=== PATIENT | female | born 1990 | race American Indian/Alaskan Native ===

== ENCOUNTER 2017-04-29 15:20 | Emergency (ER) | payer SELFPAY ==
[2017-04-29 17:48] VITALS: BP 141/85
[2017-04-29 18:21] LABS: Basophils % (Auto) 0.7 % (0.0-1.8); Eosinophils % (Auto) 1.7 % (0.0-4.3); Hematocrit 42.9 % (30.3-42.9); Mean Corpuscular HGB Conc 33 % (30-34); Mean Corpuscular Hemoglobin 30 pg (28-32); Mean Corpuscular Volume 93 fl (79-97); Platelet Count 150 K/mm3 (140-440); Red Blood Count 4.61 M/mm3 (3.65-5.03); Red Cell Distribution Width 12.8 % (13.2-15.2); White Blood Count 5.8 K/mm3 (4.5-11.0)
[2017-04-29 18:29] LABS: Alanine Aminotransferase 16 units/L (7-56); Albumin 4.4 g/dL (3.9-5); Albumin/Globulin Ratio 1.8 %; Alkaline Phosphatase 45 units/L (35-129); Anion Gap 16 mmol/L; Blood Urea Nitrogen 14 mg/dL (7-17); Calcium 9.1 mg/dL (8.4-10.2); Carbon Dioxide 26 mmol/L (22-30); Chloride 99.9 mmol/L (98-107); Glucose 93 mg/dL (65-100); Potassium 4.4 mmol/L (3.6-5.0); Sodium 137 mmol/L (137-145); Total Protein 6.9 g/dL (6.3-8.2)
--- NOTE | 2017-04-29 19:09 | Emergency Department Report ---
Entered by RM MCCALLUM, acting as scribe for JAK HADLEY PA. Chief Complaint: Abdominal Pain Stated Complaint: HIGH BP/LIGHTHEADED/DIZZY Time Seen by Provider: 04/29/17 18:22 - HPI History of Present Illness: Patient c/o 8/10 lower abdominal pain that radiates to her low back. Patient states that it feels like pins and needles in her lower extremities. Notes her blood pressure was 160/109 at home this morning. Notes Hx of elevated blood pressure with past pregnancies. Notes having an (D&C) in the end of January 2017 and reports symptoms began after her . Patient states she was prescribed Labetalol 200 mg by her OB in the past, which she took today. Reports dizziness. Reports congestion, rhinorrhea, and bilateral congested ears. Notes sick contacts with children that have a cold. Reports SOB with walking. Reports headache Reports nausea Reports fatigue Denies vomiting Denies vaginal bleeding Denies fever and chills Notes having blood pressure problems 6 weeks ago and notes taking blood pressure medication at home with port machine. Denies following up with a physician for blood pressure. Patient states she hasn't had a cycle since February 2017. - ROS Review of Systems: All systems are negative unless stated in the HPI above. - Exam Vital Signs: Vital Signs 04/29/17 17:31 Temperature 98.8 F Pulse Rate 68 Respiratory 22 Rate Blood Pressure 141/85 O2 Sat by Pulse 100 Oximetry Physical Exam: GENERAL: Patient is alert and oriented x 3. No apparent distress, normal gait, atraumatic. EYES: Extraocular movements are intact. EARS: Cerumen impaction present to left ear. Clear fluid present in right ear. LUNGS: Symmetrical with respiration. No wheezing, rales or crackles, CTAB. HEART: Regular rate and rhythm with normal S1/S2 present. No murmurs, rubs, or gallops. ABDOMEN: Soft, nondistended. Nontender to palpation on all quadrants. Back: FROM. No spinal tenderness present. EXTREMITIES/MUSCULOSKELETAL: ROM intact, 2+ pulses in UE/LE, no pitting edema MSE screening note: Focused history and physical exam performed. Due to findings the following was ordered: see below ED Medical Decision Making - Lab Data Result diagrams: 04/29/17 17:51 04/29/17 17:51 - Medical Decision Making Patient screened by provider in triage area. Labs ordered and sent in for patient. Patient sent to be seen by MD on main ED side. ED Disposition for MSE Condition: Stable Instructions: Abdominal Pain (ED) This documentation as recorded by the XENA aguero JASMINE,accurately reflects the service I personally performed and the decisions made by LEONIE soto OYINLOLA A, PA.
== END 2017-04-29 22:15 | disposition left against medical advice (07) ==
LOC: ED 15:20
DX: R03.0 Elevated blood-pressure reading, without diagnosis of hypertension (principal); R42 Dizziness and giddiness; Z53.21 Procedure and treatment not carried out due to patient leaving prior to being seen by health care provider
CPT/HCPCS: 36415; 80053; 85025

== ENCOUNTER 2019-09-30 17:19 | Emergency (ER) | payer MEDICAID, OTHER ==
[2019-09-30] MEDS ORDERED: IBUPROFEN 600 MG TAB PO ONE ×2 (17:31→17:33)
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
[2019-09-30] MEDS ORDERED: ONDANSETRON 4 MG ODT TAB PO ONE ×2 (18:46→22:35)
[2019-09-30] MEDS ORDERED: oxyCODONE /ACETAMINOPHEN 5-325MG TAB PO ONE (18:46)
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
[2019-09-30 19:19] LABS: HCG Qualitative,Urine Negative (Negative)
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
[2019-09-30] MEDS ORDERED: HYDROcodone/ACETAMINOPHEN 5-325 MG TAB ONE (22:29)
[2019-09-30] MEDS ORDERED: ONDANSETRON 4 MG ODT TAB ONE (22:29)
[2019-09-30 22:30] VITALS: BP 136/89
[2019-09-30] MEDS ORDERED: HYDROcodone/ACETAMINOPHEN 5-325 MG TAB PO ONE (22:35)
== END 2019-09-30 22:44 | disposition home or self-care (01) ==
LOC: ED 17:19
DX: S02.92XA Unspecified fracture of facial bones, initial encounter for closed fracture (principal); S00.83XA Contusion of other part of head, initial encounter; S00.03XA Contusion of scalp, initial encounter; S10.93XA Contusion of unspecified part of neck, initial encounter; S50.11XA Contusion of right forearm, initial encounter; V89.2XXA Person injured in unspecified motor-vehicle accident, traffic, initial encounter; Y93.89 Activity, other specified; Y92.410 Unspecified street and highway as the place of occurrence of the external cause; Y99.8 Other external cause status
CPT/HCPCS: 70450; 70486; 72125; 81025; Q0162